=== PATIENT | female | born 1955 | race Caucasian/White ===

== ENCOUNTER → 2017-05-29 | Day surgery (SDC) | payer OTHER ==
[~2017-05-29] MED LIST: ACETAMINOPHEN 1000 MG/100 ML 100 ML IV ONE; ACETAMINOPHEN/HYDROcodone 325 MG/5 MG TAB ONE; AMBI10TA PO; BACITRACIN IM FOR SOLN 50,000 UNIT VIAL ONE; BUPIVACAINE/EPINEPHRINE 0.25% 50 ML VIAL ONE; CETI10CH PO; EZET10 PO; LACTATED RINGER'S 1000 ML INJ 1,000 ML ONE; LEVO88TA21 PO; LIDOCAINE 2%/EPINEPHrine PF 1:200,000 20ML SDV ONE; MIDAZOLAM HCL 2 MG/2 ML VIAL ONE; MORPHINE SULFATE 4 MG/ML INJ ONE; ONDANSETRON HCL 4 MG/2 ML VIAL IV PUSH ONE; PROPOFOL 200 MG/20 ML AMP IV ONE; SODIUM CHLORIDE 0.9% 20 ML VIAL ONE; ceFAZolin INJ 1,000 MG VIAL ONE
--- NOTE | 2017-05-29 11:43 | TN ---
cc: MOISES CARRENO M.D. DATE OF SURGERY 05/29/2017 PREOPERATIVE DIAGNOSIS Status post augmentation mammoplasty with further implant rupture, dislike of volume and bilateral ptosis. PROCEDURE 1. Removal of breast implants. Both of the implants were ruptured, both were placed in the retro and the subfascial plane. 2. Full capsulectomies. Underwent lateral and inferior capsulorrhaphies. 3. Circumvertical mastopexy bilateral. SURGEON Moises Carreno MD FACS ANESTHESIA LMA general. I also utilized approximately 30 cc of 1% lidocaine and epinephrine. ESTIMATED BLOOD LOSS Minimal. COMPLICATIONS None. PROCEDURE She was properly consented, marked, anesthetized, the skin prepped with Betadine solution and sterile draping applied. The NAC was isolated with the Tegaderm from the beginning. The markings were as follows - The NAC was set at 42 mm areolar diameter at approximately 20 and 20.5 cm from sternal notch. With this, through a vertical infra-areolar incision, I proceeded and approached the breast capsule after which a full capsulectomy was performed utilizing electrocautery. After the full capsule was removed, copiously irrigation was done with antibiotic solution and warm saline. Once the whole silicone was properly removed to the best of our ability, I proceeded to perform the lateral inferior capsulorrhaphies utilizing a continuous running 0-silk. Through a separate stab wound a 10 mm JOHANNA drain was brought out and secured in place. After that the wound was closed in multiple 2-0 Monocryl suture layers in the breast parenchyma and dermis. The contralateral side was approached exactly in the same manner. At this point the patient was sat up. Parenchyma rearrangement of the envelope was carried out utilizing a tailor tack technique utilizing nicolle. Thereafter the skin was marked, the nicolle were removed, the skin was de-epithelialized and the closure was done as follows - The vertical horizontal portion was closed utilizing 2-0 Monocryl sutures and the NAC was brought into the new anatomical position utilizing 2-0 PTFE on a pinwheel technique and reinforced with 2-0 Quill. Prineo Dermabond was utilized as tissue glue and mesh as well as absorbent dressings. Everything was incorporated with a snug brassiere. Good viability of tissue was noted at the end of the case. It should be mentioned that before closing a 10-mm JOHANNA drain was brought out and secured in place through an inferior lateral separate stab wound. Overall the patient tolerated the procedure well. She was awakened, extubated in the operating room, transferred back to the postanesthesia care unit in stable condition. No complications appreciated. The patient tolerated the procedure fairly. MD MORRO Alvarado/CHARLIE /11:15 AM /11:29 AM [id number]
== END | disposition home or self-care (01) ==
LOC: ESDC 07:06
PROVIDERS: ATTEND Plastic Surgery
DX: Z41.1 Encounter for cosmetic surgery (principal)
CPT/HCPCS: 00400; 00402; 19316; 19330; 19371; 88305; J0131; J0690; J2250; J2270; J2405; J3010; J7120